=== PATIENT | female | born 1995 ===

== ENCOUNTER 2016-07-02 18:59 | Emergency (ER) | payer SELFPAY ==
[2016-07-02] MEDS ORDERED: PRENATAL VITAM1 EA11 PO (19:56)
[2016-07-02 20:29] LABS: URINE APPEARANCE CLEAR; URINE BILIRUBIN NEGATIVE (NEG); URINE BLOOD NEGATIVE (NEG); URINE COLOR YELLOW; URINE GLUCOSE (UA) NEGATIVE (NEG); URINE KETONE NEGATIVE (NEG); URINE LEUKOCYTE ESTERASE POSITIVE (NEG); URINE NITRITE NEGATIVE (NEG); URINE PH 6.5 (5.0-8.0); URINE PROTEIN SMALL (NEG); URINE SPECIFIC GRAVITY 1.015 (1.003-1.030)
[2016-07-02 20:36] LABS: URINE MUCUS 2+; URINE RBC 0 /[HPF] (0-5)
== END 2016-07-02 21:17 ==
LOC: EDMED 18:59
PROVIDERS: Emergency Medicine
DX: O26.891 Other specified pregnancy related conditions, first trimester (principal); R10.2 Pelvic and perineal pain; Z3A.10 10 weeks gestation of pregnancy